=== PATIENT | male | born 1985 | race Two or more races ===

== ENCOUNTER 2022-10-19 16:52 | Emergency (ER) | payer OTHER ==
[~2022-10-19] VITALS: Ht 162.6 cm; Wt 97.2 kg
[2022-10-19 17:10] VITALS: BP 133/87
[2022-10-19 17:28] LABS: Basophils # (auto) 0.1 10 ^3/uL (0-0.2); Eosinophils # (auto) 0.1 10 ^3/uL (0-0.8); Monocytes # (auto) 0.6 10 ^3/uL (0-1.3); Nucleated Red Blood Cells % 0.2 %; White Blood Cell 9.8 10^3/uL (4.4-10.8)
[2022-10-19 17:29] LABS: Eosinophils % (auto) 1.4 % (0.0-7.0); Hematocrit 45.9 % (41.0-53.0); Hemoglobin 15.1 g/dL (13.5-17.5); Lymphocytes % (auto) 30.4 % (10.0-50.0); Mean Corpuscular Hemoglobin 26.2 pg (28.0-32.0); Mean Corpuscular Hgb Conc. 32.8 g/dL (32.0-36.0); Mean Corpuscular Volume 79.8 fL (80.0-100.0); Monocytes % (auto) 5.9 % (0.0-12.0); Neutrophils % (auto) 61.3 % (37.0-80.0); Red Blood Cells 5.76 10^6/uL (4.5-5.90); Red Cell Distribution Width 14.4 % (11.8-14.3)
[2022-10-19 17:41] LABS: INR 1.02 (0.9-1.15); Partial Thromboplastin Time 28.2 sec (24.6-33.4)
[2022-10-19 18:40] LABS: BUN/Creatinine Ratio 8.5; Calcium 9.3 mg/dL (8.5-10.1); Potassium 4.2 mmol/L (3.5-5.1)
[2022-10-19 18:44] LABS: Bilirubin, Total 0.2 mg/dL (0.2-1.0); Total Protein 8.5 g/dL (6.4-8.2)
[2022-10-19 18:45] LABS: Urine Bacteria FEW /hpf (None Seen); Urine Blood Negative /uL (Negative); Urine Mucus FEW (None Seen); Urine Specific Gravity 1.021 (1.001-1.035); Urine WBC 2 /hpf (0 - 3)
[2022-10-20] MEDS ORDERED: PRED20TA2 PO (01:52)
[2022-10-20] MEDS ORDERED: AZIT250T9 PO (01:52)
== END 2022-10-20 01:33 | disposition left against medical advice (07) ==
LOC: ER 16:52
DX: R07.89 Other chest pain (principal)
CPT/HCPCS: 36415; 71045; 80053; 81001; 83735; 83880; 84484; 85025; 85610; 85730; 93005